=== PATIENT | male | born 1930 | race Caucasian/White ===

== ENCOUNTER 2017-02-21 09:16 | Inpatient (IN) | payer OTHER ==
[~2017-02-21] VITALS: Ht 170.2 cm; Wt 55.1 kg
--- NOTE | ~2017-02-21 | EKG ---
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: va : 1930 Requested By: Marlo Whitehead Order Number: [id number] MD: Denton Donis Measurements Intervals [place] Rate: 86 P: 44 NM: 158 QRS: -69 QRSD: 106 T: 68 QT: 378 QTc: 452 Interpretive Statements Sinus rhythm Multiform ventricular premature complexes Inferior infarct, age indeterminate Abnormal lateral Q waves No previous ECG available for comparison Electronically Signed On 02-22-2017 8:47:19 CDT by Denton Donis [email or web address] <ELECTRONICALLY SIGNED> By: Denton Donis MD, [facility] 02/22/17 0847 D: [id number] 7 Denton Donis MD, FAC /EPI
[2017-02-21 09:17] VITALS: BP 136/80
[2017-02-21 09:41] LABS: HEMATOCRIT 45.6 % (42.0-52.0); HEMOGLOBIN 14.8 gm/dL (14.0-18.0); MCH 29.2 pg (26.0-34.0); MCHC 32.5 g/dL (28.0-37.0); MCV 89.9 fL (80.0-100.0); PLATELET COUNT 205 thou/uL (150-400); RBC 5.08 mil/uL (4.50-6.00); RDW 14.6 % (10.5-14.5); WBC 15.2 thou/uL (4.0-11.0)
[2017-02-21 09:44] LABS: MANUAL DIFF YES
[2017-02-21 09:49] LABS: ANION GAP 14 mmol/L (7-16); BUN 32 mg/dL (7-18); CALCIUM 9.2 mg/dL (8.5-10.1); CHLORIDE 103 mmol/L (98-107); CO2 21 mmol/L (21-32); CREATININE 2.3 mg/dL (0.7-1.3); GLUCOSE 172 mg/dL (74-106); POTASSIUM 4.5 mmol/L (3.5-5.1); SODIUM 138 mmol/L (136-145)
[2017-02-21 10:12] LABS: ABSOLUTE NEUTROPHILS 13.7 thou/uL (1.4-8.2); ANISOCYTOSIS SLIGHT; TOTAL CELL COUNT 100
[2017-02-21 10:23] LABS: ALBUMIN 3.4 g/dL (3.4-5.0); ALKALINE PHOSPHATASE 95 U/L (46-116); CK-MB MASS < 0.5 ng/mL (<0.5-3.6); MAGNESIUM 2.1 mg/dL (1.8-2.4); NT-PRO BRAIN NAT PEPTIDE 2866 pg/mL (<300); SGOT 19 U/L (15-37); SGPT 12 U/L (30-65); TOTAL BILIRUBIN 0.8 mg/dL (<0.1-1.0); TOTAL PROTEIN 7.8 g/dL (6.4-8.2); TROPONIN-I < 0.04 ng/mL (<0.04-0.07)
[2017-02-21 12:21] VITALS: BP 123/53
[2017-02-21 12:25] LABS: URINE BILIRUBIN NEGATIVE (Negative); URINE BLOOD TRACE (Negative); URINE COLOR YELLOW; URINE GLUCOSE-RANDOM* NEGATIVE (Negative); URINE KETONES NEGATIVE (Negative); URINE LEUKOCYTES-REFLEX NEGATIVE (Negative); URINE PROTEIN (DIPSTICK) 3+ (Negative); URINE SPECIFIC GRAVITY 1.025 (1.003-1.035); URINE UROBILINOGEN 0.2 E.U./dl (0.2-1.0)
[2017-02-21 12:39] LABS: SQUAMOUS None Seen /LPF (0-3)
[2017-02-21 12:40] LABS: AMORPHOUS URATES Many /LPF (None Seen); CASTS None Seen /LPF (None Seen); URINE RBC 0-2 Rare /HPF (0-2); URINE WBC-REFLEX 0-5 Rare /HPF (0-5)
[2017-02-21 15:08] VITALS: BP 114/69
[2017-02-21 15:15] LABS: TSH 1.665 uIU/mL (0.358-3.740)
[2017-02-21 19:40] VITALS: BP 139/76
[2017-02-21] MEDS ORDERED: CRESTOR10 MG PO (20:40)
[2017-02-21] MEDS ORDERED: IMDUR 30 MG TAB30 M1 PO (20:41)
[2017-02-22 03:50] VITALS: BP 105/50
[2017-02-22 06:06] LABS: HEMATOCRIT 33.3 % (42.0-52.0); MCH 30.1 pg (26.0-34.0); MCHC 34.2 g/dL (28.0-37.0); RBC 3.78 mil/uL (4.50-6.00); RDW 14.7 % (10.5-14.5); WBC 7.9 thou/uL (4.0-11.0)
[2017-02-22 06:15] LABS: HEMOGLOBIN 11.4 gm/dL (14.0-18.0)
[2017-02-22 06:24] LABS: ALBUMIN 2.4 g/dL (3.4-5.0); CALCIUM 7.7 mg/dL (8.5-10.1); PHOSPHORUS 2.7 mg/dL (2.5-4.9); POTASSIUM 3.7 mmol/L (3.5-5.1)
[2017-02-22 08:21] VITALS: BP 111/61
[2017-02-22 15:46] VITALS: BP 115/61
[2017-02-22 20:00] VITALS: BP 131/73
[2017-02-23 05:00] VITALS: BP 129/90
[2017-02-23 07:26] VITALS: BP 123/63
[2017-02-23 15:21] VITALS: BP 124/75
[2017-02-23 21:50] VITALS: BP 125/68
[2017-02-24 04:29] VITALS: BP 121/72
[2017-02-24 05:37] LABS: ALBUMIN 2.4 g/dL (3.4-5.0); CALCIUM 8.1 mg/dL (8.5-10.1); CREATININE 1.9 mg/dL (0.7-1.3); PHOSPHORUS 2.8 mg/dL (2.5-4.9); POTASSIUM 3.7 mmol/L (3.5-5.1)
[2017-02-24 08:00] VITALS: BP 134/78
[2017-02-24] MEDS ORDERED: MIRALAX17 GM PO (10:19)
[2017-02-24] MEDS ORDERED: CEFDINIR300 MG PO (10:19)
[2017-02-24] MEDS ORDERED: PEPCID20 MG PO (10:19)
== END 2017-02-24 12:58 | DRG 871 ==
LOC: ER 09:16 → EROBS 11:19 → 4E 11:19
PROVIDERS: Emergency Medicine; Hospitalist
DX: A41.9 Sepsis, unspecified organism (principal); N17.0 Acute kidney failure with tubular necrosis; G93.41 Metabolic encephalopathy; J18.9 Pneumonia, unspecified organism; K56.7 Ileus, unspecified; E44.0 Moderate protein-calorie malnutrition; N39.0 Urinary tract infection, site not specified; Z68.1 Body mass index [BMI] 19.9 or less, adult; E86.0 Dehydration; N18.9 Chronic kidney disease, unspecified; F03.90 Unspecified dementia, unspecified severity, without behavioral disturbance, psychotic disturbance, mood disturbance, and anxiety; E78.5 Hyperlipidemia, unspecified; S09.90XA Unspecified injury of head, initial encounter; W18.39XA Other fall on same level, initial encounter; Y93.89 Activity, other specified; Y92.89 Other specified places as the place of occurrence of the external cause; I25.2 Old myocardial infarction; Y99.8 Other external cause status
CPT/HCPCS: 10084

== ENCOUNTER 2017-05-19 20:16 | Inpatient (IN) | payer OTHER ==
[~2017-05-19] VITALS: Ht 170.2 cm; Wt 50.9 kg
--- NOTE | ~2017-05-19 | HC ---
[facility] [place] [address] CONSULTATION Name: CANDACE CHAVEZ Room #: 316-P ADM IN M.R.#: [id number] Admission: 05/19/17 Attend Phys: Gasper France Discharge: Date of : [birth year] Report #: [id number] THIS REPORT FOR: //name// CC: Maximilian Mckeon MD DATE OF SERVICE: 05/22/2017 PULMONARY CONSULTATION REFERRING PROVIDER: Faye Mckeon MD REASON FOR CONSULTATION: Abnormal CT scan of the chest. CHIEF COMPLAINT: Cough, dyspnea. HISTORY OF PRESENT ILLNESS: Our group was asked to see the patient in consultation while hospitalized at [facility], a pleasant 86-year-old male, seems a reasonable historian, noted to have some mild dementia, some other history taken from review of healthcare records, talking to healthcare providers and discussion with . He presented with feeling poorly, somewhat clammy, cough productive of white sputum. Denies any fevers, chills or sweats. Had just been admitted to the hospital about 3 months prior for pneumonia as well. On chest radiograph, pulmonary nodule had been suggested as well as some chronic bibasilar fibrotic changes or infiltrates. CT scan of the chest revealed a very large 4 cm subcarinal mass as well as what appeared to be possibly pleural based right mid lung/lateral segment right middle lobe mass as well in addition to basilar infiltrates, atelectasis and perhaps some chronic interstitial changes. Some esophageal thickening was also noted. He is undergoing EGD at this time, but discussed with the patient prior. He had some cough with minimal sputum production. No fevers, chills or sweats. [place] poorly, currently on antibiotics and bronchodilators. There is a history of tobacco use, quitting about 4 years ago. ALLERGIES: None known. PAST MEDICAL HISTORY: 1. Recent pneumonia in February of this year. 2. Chronic renal insufficiency. 3. History of dementia. 4. History of prior right knee surgery. 5. History of atherosclerotic coronary artery disease. [facility] [address] [place] [address] CONSULTATION Name: CANDACE CHAVEZ Room #: 316-P [facility] IN M.R.#: [id number] Admission: 05/19/17 Attend Phys: Gasper France Discharge: Date of : [birth year] Report #: [id number] OUTPATIENT MEDICATIONS: Include famotidine, cefdinir, MiraLax. SOCIAL HISTORY: Ex-smoker, quitting about 4 years ago. No significant alcohol consumption. Lives with his . FAMILY HISTORY: Noncontributory due to his advanced age. REVIEW OF SYSTEMS: CONSTITUTIONAL: No fever, chills or sweats, some general malaise noted. ENT: No upper respiratory congestion, rhinorrhea. Denies any dysphagia ____ symptoms. CARDIOVASCULAR: No chest pain or palpitations. GASTROINTESTINAL: Denies any nausea, vomiting, diarrhea, constipation or abdominal pain. GENITOURINARY: No dysuria, no frequency, no hematuria. INTEGUMENT: Denies any new rash. MUSCULOSKELETAL: Some generalized weakness. Notes some right lower extremity weakness. PHYSICAL EXAMINATION: VITAL SIGNS: Afebrile, pulse 70s, respiratory rate 16, blood pressure 111/57 and oxygen saturation 99% on room air. GENERAL: This is a thin elderly male, in no distress. HEENT: Clear oropharynx. No thrush. Mallampati 1 airway. NECK: Supple, no lymphadenopathy. LUNGS: Bibasilar mid inspiratory crackles, no wheezes. CARDIOVASCULAR: Heart regular. No murmurs noted. ABDOMEN: Soft, nontender, no masses, no hepatosplenomegaly. EXTREMITIES: Revealed some muscular atrophy, but no edema. LABORATORY DATA: Complete blood count on 05/19 revealed white blood cell count of 10,000; hemoglobin 14; hematocrit 42; platelet count 179. Chemistry profile on admission revealed sodium 138, potassium 4.5, chloride 101, bicarbonate 22, BUN 40, creatinine 2.4, glucose 128, alkaline phosphatase mildly elevated at 156. CT scan as described in HPI. IMPRESSION: 1. Lung mass with large mediastinal mass or adenopathy, worrisome for advanced age, malignancy of the chest. Further evaluation with diagnostic bronchoscopy is warranted unless significant disease found on esophagogastroduodenoscopy today. 2. Esophageal thickening of unclear etiology. Esophagogastroduodenoscopy ongoing at this time. 3. Renal insufficiency, possibly acute on chronic. SUGGESTIONS: As above. Plan on fiberoptic bronchoscopy in a.m., would check [address] [address] CONSULTATION Name: CANDACE CHAVEZ Room #: 316-P [facility] IN M.R.#: [id number] Admission: 05/19/17 Attend Phys: Gasper France Discharge: Date of : [birth year] Report #: [id number] coag panel, repeat laboratories. Discussed at length with and the patient ____ ultrasound under general endotracheal anesthesia in a.m. unless significant pathology noted on EGD. <ELECTRONICALLY SIGNED> By: Hubert Osborne MD 05/24/17 1304 1309 1945 Hubert Osborne MD /nt
--- NOTE | ~2017-05-19 | 2DMMODE ---
[facility] [address] [place] [address] 2 D/M-MODE ECHOCARDIOGRAM Name: CANDACE CHAVEZ Room #: 316-P ADM IN M.R.#: [id number] Admission: 05/19/17 Attend Phys: Gasper Chacon Discharge: Date of : [birth year] Date of Service: 05/21/17 1157 Report #: [id number] THIS REPORT FOR: //name// APPROVED REPORT Study performed: 05/21/2017 09:09:41 EXAM: Comprehensive 2D, Doppler, and color-flow Echocardiogram Patient Location: Bedside Room #: 316 Status: routine BSA: 1.58 HR: 58 bpm BP: 110/50 mmHg Other Information Study Quality: Adequate Indications Elevated BNP Hx SOA, CHF, COPD 2D Dimensions RVDd: 19.60 mm LVEF(%): 36.76 (>50%) IVSd: 12.80 (7-11mm) LVOT Diam: 20.60 (18-24mm) LVDd: 37.58 mm PWd: 11.78 (7-11mm) Ascending Ao: 29.49 (22-36mm) LVDs: 31.08 (25-40mm) Aortic Root: 25.79 mm Griffin's LVEF: 36.76 % Volumes Left Atrial Volume (Systole) Single Plane 4CH: 35.54 mL LA ESV Index: 36.00 mL/m2 Aortic Valve AoV Peak Felice.: 1.74 m/s AO Peak Gr.: 12.16 mmHg LVOT Max P.15 mmHg LVOT Max V: 0.89 m/s VICKIE Vmax: 1.69 cm2 Mitral Valve E/A Ratio: 0.6 MV Decel. Time: 246.94 ms MV E Max Felice.: 0.65 m/s [facility] [address] [place] [address] 2 D/M-MODE ECHOCARDIOGRAM Name: CANDACE CHAVEZ Room #: 316-[facility] IN M.R.#: [id number] Admission: 05/19/17 Attend Phys: Gasper Chacon Discharge: Date of : [birth year] Date of Service: 05/21/17 1157 Report #: [id number] A Felice.: 1.03 m/s MV PHT: 71.61 ms IVRT: 87.66 ms Pulmonary Valve PV Peak Felice.: 0.99 m/s PV Peak Gr.: 3.92 mmHg Pulmonary Vein P Vein S: 0.42 m/s P Vein A: 0.32 m/s P Vein D: 0.35 m/s P Vein A Dur.: 129.2 msec P Vein S/D Ratio: 1.20 Tricuspid Valve TR Peak Felice.: 2.45 m/s RAP Estimate: 5.00 mmHg TR Peak Gr.: 24.01 mmHg PA Pressure: 29.00 mmHg Left Ventricle The left ventricle is normal size. Borderline concentric left ventricular hypertrophy. Left ventricular systolic function is borderline. LVEF is45-50%. Grade I - abnormal relaxation pattern. Right Ventricle The right ventricle is normal size. The right ventricular systolic function is normal. Right ventricular systolic function could not be assessed. Right ventricular systolic function is grossly normal. Atria Left atrium is dilated. The right atrium size is normal. Aortic Valve Aortic valve is calcified. No aortic regurgitation is present. There is no aortic valvular stenosis. Mitral Valve Mitral valve leaflets are thickened. Trace mitral regurgitation. No evidence of mitral valve stenosis. Tricuspid Valve The tricuspid valve is normal in structure. There is trace tricuspid regurgitation. The right atrial pressure is estimated at 5 mmHg. There is no pulmonary hypertension with an estimated PAP of [address] [address] 2 D/M-MODE ECHOCARDIOGRAM Name: CANDACE CHAVEZ Room #: 316-P [facility] IN .R.#: [id number] Admission: 05/19/17 Attend Phys: Gasper Chacon Discharge: Date of : [birth year] Date of Service: 05/21/17 1157 Report #: [id number] Pulmonic Valve The pulmonary valve is normal in structure. There is no pulmonic valvular regurgitation. Great Vessels The aortic root is normal in size. The ascending aorta is normal in size. IVC is not well visualized. Pericardium There is no pericardial effusion. <Conclusion> The left ventricle is normal size. LVEF is45-50%. Left atrium is dilated. Aortic valve is calcified. Mitral valve leaflets are thickened. Trace mitral regurgitation. The tricuspid valve is normal in structure. There is trace tricuspid regurgitation. The right atrial pressure is estimated at 5 mmHg. There is no pulmonary hypertension with an estimated PAP of 29 mmHg. The pulmonary valve is normal in structure. <ELECTRONICALLY SIGNED> By: Luis Tariq MD 05/21/17 1157 1157 1157 Luis Tariq MD /INF
--- NOTE | ~2017-05-19 | CNG ---
[facility] [place] [address] CYTO-NONGYN REPORT PROCEDURE Name: CANDACE CHAVEZ Room #: 316-P DIS IN M.R.#: [id number] Admission: 05/19/17 Date of : [birth year] Discharge: 05/24/17 Report #: [id number] Path Case #: [id number] CYTOPATHOLOGY REPORT COLLECTION DATE: 05/23/2017 RECEIVED DATE: 05/24/2017 SUBMITTING PHYS: Dr. Hubert Osborne OTHER PHYS: Dr. Scot Bah CLINICAL HISTORY: Community acquired pneumonia; 4.0 cm mass in area of lymph node 7 PROCEDURE: Seven passes performed by Dr. Choi yielding 45 mL of cloudy brown fluid. Six H and E slides, and 45 mL from needle rinsed in Formalin were submitted to the lab. . SPECIMEN(S) RECEIVED: A.EBUS guided TBNA, Node 7 passes 1-9 B.Bronchial wash * * * * * * * * * * * * FINAL DIAGNOSIS: A. Lymph node 7 passes 1-9, EBUS guided TBNA: MARKEDLY DYSPLASTIC SQUAMOUS EPITHELIUM, SEE COMMENT. Reactive bronchial epithelial cells, cartilage, scattered lymphocytes and blood. No definite lymphoid tissue present. B. Bronchial wash: ATYPICAL DYSKERATOTIC KERATINOCYTES IDENTIFIED. Bronchial epithelial cells, macrophages and inflammatory cells present. COMMENT: Examination shows markedly dysplastic squamous epithelial cells with a few dyskeratotic keratinocytes, nuclear pleomorphism and increased mitoses. These cells may represent squamous cell carcinoma insitu or dysplasia within the bronchial epithelium. Few cells are identified in close association with acute inflammation. Neoplastic process is favored over reactive due to the presence of dyskeratotic cells, nuclear pleomorphism and mitotic figures within the sampled fragments. Lack of intact mucosal fragments or underlying stroma precludes a definite diagnosis. Suggest resampling subsequent to treating the pneumonia. Please correlate clinically and follow- up as indicated. [place]: Dr. Chet Leone. [address] [address] CYTO-NONGYN REPORT PROCEDURE Name: CANDACE CHAVEZ Room #: 316-P [facility] IN ..#: [id number] Admission: 05/19/17 Date of : [birth year] Discharge: 05/24/17 Report #: [id number] Path Case #: [id number] PATHOLOGIST: Kandice Grayson M.D. REPORT ELECTRONICALLY SIGNED BY: Kandice Grayson M.D. DATE/TIME: 05/25/2017 13:49 * * * * * * * * * * * * GROSS PATHOLOGY: A. EBUS guided TBNA, Node 7 passes 1-9: The specimen is labeled "Candace Chavez" and consists of six H and E slides. Forty-five mL of cloudy brown fluid in formalin from the needle rinse is also submitted and a formalin fixed cell block only was prepared from this material. B. Bronchial wash: The specimen is submitted unfixed, labeled "Emelia, Candace". Received by the Cytology Department is 15 mL of cloudy pink fluid. One ThinPrep slide was prepared. (mm .) IMMEDIATE EVALUATION: A. Lymph node, Node 7 FNA; Per Dr. Choi: Passes 1 and 5 rare groups of atypical cells; Pass 7 Lesional tissue present Professional services performed under supervision of [facility] Pharmacist at [address] [place] [address] , [place] [address]. CHUTE BUILDER(S): JABIER Baptiste(ASCP)IAC INITIAL CPT CODE(S): A; 63423, 19576, 57068 B; 64018 Professional services performed by [facility] at [facility] [address], [place] [address] Technical services performed by [facility] at [address] [place] [address]., [address], [place] [address]. [facility], [address] [place] [address] PHONE: [phone] DIRECTOR: Doug Bellamy M.D. * * * END OF REPORT * * *
--- NOTE | ~2017-05-19 | S ---
[facility] [place] [address] SURGICAL PATH RPT PROCEDURE Name: CANDACE CHAVEZ Room #: 316-P ADM IN M.R.#: [id number] Admission: 05/19/17 Date of : [birth year] Discharge: Report #: [id number] Path Case #: [id number] PATHOLOGY REPORT COLLECTION DATE: 05/22/2017 RECEIVED DATE: 05/22/2017 SUBMITTING PHYS: Dr. Maximilian Queen OTHER PHYS: Dr. Gasper [place] SPECIMEN(S) RECEIVED: A.Gastritis bx * * * * * * * * * * * * FINAL DIAGNOSIS: Gastric mucosa, gastritis, endoscopic biopsy: - Mild reactive gastropathy with focal chronic inflammation. - Negative for intestinal metaplasia or atrophy. - Negative for Helicobacter pylori. (IUV:jammie; 05/23/2017) COMMENT: Helicobacter pylori immunohistochemical stain performed on block A1 - Negative. (IUV:jammie; 05/23/2017) PATHOLOGIST: Kandice Grayson M.D. REPORT ELECTRONICALLY SIGNED BY: Kandice Grayson M.D. DATE/TIME: 05/23/2017 14:10 * * * * * * * * * * * * GROSS PATHOLOGY: Received in formalin labeled "Candace Chavez, gastritis," are 3 segments of [place] soft tissue measuring 0.9 x 0.5 x 0.3 cm in aggregate dimensions and ranging from 0.3 to 0.7 cm in maximum dimension. The specimen is submitted entirely in cassette A1. (TSD; 05/22/2017) CLINICAL HISTORY: Pre-OP DX: Dysphagia Post-OP DX: Gastritis, esophagitis, hiatal hernia INITIAL CPT CODE(S): A; 89576, [address] [facility] [address] [place] [address] SURGICAL PATH RPT PROCEDURE Name: CANDACE CHAVEZ Room #: 316-P ADM IN M.R.#: [id number] Admission: 05/19/17 Date of : [birth year] Discharge: Report #: [id number] Path Case #: [id number] Professional services performed by [facility] at [address] [facility], [place] [address] Technical services performed by [facility] at [address] [place] [address], [facility] [address], [place] [address]. [facility] [address] [place] [address] PHONE: [phone] DIRECTOR: Doug Bellamy M.D. * * * END OF REPORT * * *
--- NOTE | ~2017-05-19 | P ---
[facility] [place] [address] PROCEDURE REPORT Name: CANDACE CHAVEZ Room #: 316-P [facility] IN M.R.#: [id number] Admission: 05/19/17 Attend Phys: Gasper France Discharge: 05/24/17 Date of : [birth year] Report #: [id number] THIS REPORT FOR: //name// CC: Gasper Mckeon MD DATE OF SERVICE: 05/22/2017 PROCEDURE PERFORMED: Upper endoscopy with biopsies. HISTORY OF PRESENT ILLNESS: The patient is an 86-year-old male who was admitted yesterday with cough, shortness of breath, and white sputum production. He has had weight loss. He does have a history of dementia. Much of his history was obtained through his . He has also been complaining of dysphagia at times. He has a history of gastroesophageal reflux disease. His report some regurgitation of food at times. He does take omeprazole on a daily basis, also complains of mid epigastric abdominal pain. The patient underwent a CT scan of his chest yesterday, which shows a right lung peripheral soft tissue mass suspicious for malignancy. Pathologic-sized mediastinal adenopathy was also noted, possible esophageal wall thickening diffusely of uncertain significance, apparent gallstones were noted. Ultrasound of the abdomen, gallbladder contains material within the neck without evidence of shadowing, this may represent sludge, although impacted gallstones cannot be completely excluded. Plan is for EGD. PROCEDURE: The risks and benefits of the procedure were explained to the patient's family, those risks including, but not limited to bleeding, perforation, the risk of sedation. They understood these risks and gave informed consent. Sedation was given using propofol per anesthesia. Next, using a standard Fujinon upper endoscope, the scope was placed in the patient's mouth and advanced under direct vision through the esophagus, stomach, and into the second portion of the duodenum. The larynx was normal in appearance. There was a possible small Zenker's diverticulum, it was hard to determine. The upper esophagus was normal. In the mid esophagus, there may be some extrinsic compression. No mucosal abnormalities were noted; however, in the mid esophagus. In the distal esophagus; however, there was grade D erosive esophagitis with linear ulcers. There was also a narrowing of the distal esophagus at the GE junction, was not able to dilate this today because of the significant esophagitis. Upon entering the stomach, a small hiatal hernia was noted. Overall, the gastric mucosa was normal in the fundus. There was a mild gastritis noted in the body and antrum. Biopsies were obtained to rule out H. pylori. There were no ulcerations or erosions. There was no bleeding. [facility] [address] [place] [address] PROCEDURE REPORT Name: CANDACE CHAVEZ Room #: 316-P DIS IN M.R.#: [id number] Admission: 05/19/17 Attend Phys: Gasper France Discharge: 05/24/17 Date of : [birth year] Report #: [id number] pylorus was normal and patent. The duodenal bulb, first and second portion were all normal. The scope was then withdrawn and the procedure terminated. The patient tolerated the procedure well. IMPRESSION: 1. Grade D erosive esophagitis with narrowing at the gastroesophageal junction, unable to dilate due to esophagitis. 2. Small hiatal hernia. 3. Gastritis. 4. Possible extrinsic compression of mid esophagus, this may be secondary to mediastinal lymphadenopathy. 5. 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 RECOMMENDATIONS: 1. Await biopsy results. 2. We would recommend b.i.d. PPI therapy as well as liquid Carafate q. a.c. and at bedtime. 3. Await further workup of right lung mass. Thank you for allowing me to participate in his care. <ELECTRONICALLY SIGNED> By: Maximilian Queen MD 05/25/17 1151 1242 1835 Maximilian Queen MD /nt
--- NOTE | ~2017-05-19 | EKG ---
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 : 1930 Requested By: Simona Louie Order Number: [id number] MD: Godwin Long Measurements Intervals [place] Rate: 99 P: [place]: QRS: -27 QRSD: 131 T: -8 QT: 344 QTc: 442 Interpretive Statements Sinus rhythm with arrhythmia Ventricular premature complex Nonspecific intraventricular conduction delay Inferior infarct, age indeterminate Nonspecific ST segment abnormalities Compared to ECG 02/21/2017 09:18:01 No significant change Electronically Signed On 05-20-2017 10:57:01 CDT by Godwin Long [email or web address] <ELECTRONICALLY SIGNED> By: Godwin Long MD 097 21 21 Godwin Long MD /JOSE LUIS
[~2017-05-19 20:16] MED LIST: CEFDINIR300 MG PO; CRESTOR10 MG PO; IMDUR 30 MG TAB30 M1 PO; MIRALAX17 GM PO; PEPCID20 MG PO
[2017-05-19 20:20] VITALS: BP 118/70
[2017-05-19 22:48] LABS: BASOPHILS 0.6 % (0.0-2.0); EOSINOPHILS 1.5 % (0.0-3.0); HEMATOCRIT 41.9 % (42.0-52.0); HEMOGLOBIN 14.1 gm/dL (14.0-18.0); LYMPHOCYTES 17.5 % (24.0-44.0); MCH 29.8 pg (26.0-34.0); MCHC 33.6 g/dL (28.0-37.0); MCV 88.6 fL (80.0-100.0); MONOCYTES 10.9 % (1.0-8.0); PLATELET COUNT 179 thou/uL (150-400); POLYS 69.5 % (36.0-66.0); RBC 4.72 mil/uL (4.50-6.00); RDW 16.2 % (10.5-14.5)
[2017-05-19 22:52] LABS: MANUAL DIFF NO
[2017-05-19 22:55] LABS: ANION GAP 15 mmol/L (7-16); BUN 40 mg/dL (7-18); CALCIUM 9.9 mg/dL (8.5-10.1); CHLORIDE 101 mmol/L (98-107); CO2 22 mmol/L (21-32); CREATININE 2.4 mg/dL (0.7-1.3); GLUCOSE 128 mg/dL (74-106); POTASSIUM 4.5 mmol/L (3.5-5.1); SODIUM 138 mmol/L (136-145)
[2017-05-19 23:03] LABS: ALBUMIN 3.5 g/dL (3.4-5.0); ALKALINE PHOSPHATASE 156 U/L (46-116); DIRECT BILIRUBIN 0.1 mg/dL (<0.1-0.3); SGOT 47 U/L (15-37); SGPT 25 U/L (30-65); TOTAL BILIRUBIN 0.8 mg/dL (<0.1-1.0); TOTAL PROTEIN 8.2 g/dL (6.4-8.2); TROPONIN-I < 0.04 ng/mL (<0.04-0.07)
[2017-05-20] VITALS (7 sets, daily range): BP systolic 98–146; BP diastolic 49–88
[2017-05-21 05:25] VITALS: BP 103/55
[2017-05-21 07:04] VITALS: BP 110/50
[2017-05-21 15:08] VITALS: BP 103/57
[2017-05-21 20:02] VITALS: BP 90/49
[2017-05-22 03:29] VITALS: BP 93/48
[2017-05-22 07:21] VITALS: BP 111/57
[2017-05-22 14:45] LABS: HEMATOCRIT 35.1 % (42.0-52.0); INR 1.1; MCH 29.7 pg (26.0-34.0); MCHC 32.3 g/dL (28.0-37.0); MCV 91.9 fL (80.0-100.0); PROTIME 11.3 Seconds (9.3-11.4); RBC 3.81 mil/uL (4.50-6.00); RDW 16.1 % (10.5-14.5); WBC 12.2 thou/uL (4.0-11.0)
[2017-05-22 15:02] LABS: HEMOGLOBIN 11.3 gm/dL (14.0-18.0)
[2017-05-22 16:34] VITALS: BP 134/78
[2017-05-22 20:45] VITALS: BP 120/66
[2017-05-23 04:15] LABS: ALBUMIN 2.6 g/dL (3.4-5.0); CALCIUM 8.5 mg/dL (8.5-10.1); CREATININE 2.1 mg/dL (0.7-1.3); PHOSPHORUS 3.6 mg/dL (2.5-4.9); POTASSIUM 4.1 mmol/L (3.5-5.1)
[2017-05-23 04:40] VITALS: BP 125/68
[2017-05-23 07:56] VITALS: BP 109/70
[2017-05-23 12:15] VITALS: BP 120/72
[2017-05-23 16:56] VITALS: BP 96/55
[2017-05-23 19:28] VITALS: BP 117/54
[2017-05-24 03:45] VITALS: BP 105/55
[2017-05-24 08:00] VITALS: BP 125/74
[2017-05-24] MEDS ORDERED: AUGMENTIN 875-1 EACH PO (11:41)
[2017-05-24] MEDS ORDERED: PANTOPRAZOLE SO40 M1 PO (11:41)
[2017-05-24] MEDS ORDERED: CARAFATE 11 GM/10 M1 PO (11:41)
[2017-05-24 12:12] VITALS: BP 125/74
== END 2017-05-24 15:31 | disposition home health service (06) | DRG 177 ==
LOC: ER 20:16 → EROBS 23:52 → 3N 23:52
PROVIDERS: Emergency Medicine; Hospitalist; Internal Medicine Pulmonary Disease
PROC: 0DB68ZX Excision of Stomach, Via Natural or Artificial Opening Endoscopic, Diagnostic (ICD-10-PCS; principal; 2017-05-22)
DX: J69.0 Pneumonitis due to inhalation of food and vomit (principal); N17.0 Acute kidney failure with tubular necrosis; R65.20 Severe sepsis without septic shock; E44.0 Moderate protein-calorie malnutrition; Z68.1 Body mass index [BMI] 19.9 or less, adult; E87.2 Acidosis; I50.9 Heart failure, unspecified; F03.90 Unspecified dementia, unspecified severity, without behavioral disturbance, psychotic disturbance, mood disturbance, and anxiety; N18.9 Chronic kidney disease, unspecified; I25.10 Atherosclerotic heart disease of native coronary artery without angina pectoris; R91.8 Other nonspecific abnormal finding of lung field; R59.0 Localized enlarged lymph nodes; R74.0 Nonspecific elevation of levels of transaminase and lactic acid dehydrogenase [LDH]; J44.9 Chronic obstructive pulmonary disease, unspecified; K21.9 Gastro-esophageal reflux disease without esophagitis; I73.9 Peripheral vascular disease, unspecified; E78.5 Hyperlipidemia, unspecified; K20.9 Esophagitis, unspecified; K80.80 Other cholelithiasis without obstruction; K44.9 Diaphragmatic hernia without obstruction or gangrene; K29.70 Gastritis, unspecified, without bleeding; Z87.891 Personal history of nicotine dependence; I25.2 Old myocardial infarction
CPT/HCPCS: 10094; 62110; 62900; 70005

== ENCOUNTER → 2017-06-05 | Outpatient (CLI) | payer OTHER ==
[~2017-06-05] MED LIST changes: +AUGMENTIN 875-1 EACH PO; +CARAFATE 11 GM/10 M1 PO; +PANTOPRAZOLE SO40 M1 PO
== END ==
LOC: RAD 10:16
DX: J18.9 Pneumonia, unspecified organism (principal); J98.11 Atelectasis; R13.10 Dysphagia, unspecified